=== PATIENT | female | born 1975 | race Caucasian/White ===

== ENCOUNTER → 2020-02-16 11:20 | Outpatient (BNVA) | payer SELFPAY | PROVIDERS: Family Provider Nurse Practitioner Family; PCP Nurse Practitioner Family; Visit Provider Registered Nurse | DX: E78.5 Hyperlipidemia, unspecified (principal); R73.9 Hyperglycemia, unspecified | CPT/HCPCS: 80053; 80061; 85025 ==

== ENCOUNTER → 2021-02-15 09:12 | Outpatient (BNVA) | payer SELFPAY | PROVIDERS: Family Provider Nurse Practitioner Family; PCP Nurse Practitioner Family; Referring Provider Registered Nurse; Visit Provider Orthopaedic Surgery | DX: M17.11 Unilateral primary osteoarthritis, right knee (principal) | CPT/HCPCS: 73560; 73565 ==

== ENCOUNTER → 2021-08-28 09:44 | Outpatient (BNVA) | payer SELFPAY | PROVIDERS: Family Provider Nurse Practitioner Family; PCP Registered Nurse; Visit Provider Registered Nurse | DX: E11.9 Type 2 diabetes mellitus without complications (principal); E78.2 Mixed hyperlipidemia | CPT/HCPCS: 80053; 81000; 83036 ==

== ENCOUNTER → 2021-11-22 16:59 | Outpatient (BNVA) | payer SELFPAY | PROVIDERS: Family Provider Nurse Practitioner Family; PCP Registered Nurse; Visit Provider Family Medicine | DX: M54.9 Dorsalgia, unspecified (principal); N20.0 Calculus of kidney | CPT/HCPCS: 81000 ==

== ENCOUNTER → 2021-12-06 00:01 | Outpatient (BNVA) | payer MEDICAID, SELFPAY | PROVIDERS: Family Provider Nurse Practitioner Family; PCP Registered Nurse; Visit Provider Registered Nurse | DX: M25.50 Pain in unspecified joint (principal); I10 Essential (primary) hypertension | CPT/HCPCS: 80053; 85025; 85651; 86038; 86140; 86431 ==

== ENCOUNTER → 2022-01-01 09:39 | Outpatient (BNVA) | payer MEDICAID, SELFPAY | PROVIDERS: Family Provider Nurse Practitioner Family; PCP Registered Nurse; Visit Provider Registered Nurse | DX: R31.9 Hematuria, unspecified (principal); R10.9 Unspecified abdominal pain | CPT/HCPCS: 81000; 87086 ==

== ENCOUNTER 2022-01-02 15:38 | Outpatient (CLI) | payer MEDICAID, SELFPAY ==
--- NOTE | 2022-01-02 15:30 | CT_ITS ---
WS: [email or web address] CT ABDOMEN AND PELVIS NONCONTRAST HISTORY: Right-sided flank pain for one month. TECHNIQUE: Imaging performed through the abdomen and pelvis. Coronal and sagittal reformats are submi tted. All CT scans at [facility] use at least one of these dose optimization techniques: auto mated exposure control; mA and/or kV adjustment per patient size (includes targeted exams where dose is matched to clinical indication); or iterative reconstruction. DLP: 1901.04 mGy.cm COMPARISON: 08/05/2019 Lower thorax: New lobulated partially visualized nodule in the LEFT lower lung measuring 2.4 x 1.6 cm . There is a small amount of adjacent inflammatory change within the lung. Heart size is normal. No h iatal hernia. Liver: Liver is moderately enlarged extending over length of 19 cm. No bile duct dilatation. Gallbladder: Prior cholecystectomy. Pancreas: Normal size and attenuation. Normal pancreatic duct. No pancreatitis or mass. Spleen: Normal. Adrenal glands: Normal. No mass. Right kidney: Normal size kidney with no mass or hydronephrosis. Left kidney: Normal size kidney with no mass or hydronephrosis. Aorta: Normal abdominal aorta, no aneurysm or atherosclerosis. No free fluid, intraperitoneal air or significant lymphadenopathy. GI tract: Normal appendix. No GI tract obstruction or diverticulosis. Abdominal wall: Negative. No hernia. Pelvis: Normal. Osseous structures: Unremarkable. CT/CT kidney stone [id number] IMPRESSION: 1. No renal obstruction or calcification. 2. No evidence for appendicitis. 3. Incompletely visualized LEFT lower lobe pulmonary nodule measures 2.4 x 1.6 cm. Differential includes pneumonia, inflammatory nodule or neoplasm. Recommen d short-term chest CT follow-up, 2-4 weeks after treatment for possible pneumon ia. 4. Prior cholecystectomy. 5. Mild hepatomegaly.
--- NOTE | 2022-01-02 16:12 | XR_ITS ---
WS: [email or web address] XR sacroiliac jts m 3V [id number] REASON FOR EXAM: R76.8 - Other specified abnormal immunological findings i... FINDINGS: There is no bridging or fusion of the sacroiliac joints. There are no marginal erosions. Joints are well defined with slightly sclerotic margins with small marginal osteophytes at the inferi or joint line. XR/XR sacroiliac jts m 3V [id number] IMPRESSION: Mild osteoarthritis of the sacroiliac joints. No findings of spondyloarthropathy.
--- NOTE | 2022-01-02 16:12 | XR_ITS ---
WS: [email or web address] XR hand RT 2V [id number] REASON FOR EXAM: R76.8 - Other specified abnormal immunological findings i... FINDINGS: Arthropathy characterized by mild joint space narrowing with mild subchondral sclerosis and small mar ginal osteophytes involving the DIP and PIP joints of the second through the fifth fingers. The arthr opathy predominates in the DIP joints. Similar arthropathy is seen in the joints of the thumb. Lucencies are seen in the proximal distal mos t phalanx and the distal most proximal phalanx adjacent to the joint space as previously noted on the left hand. XR/XR hand RT 2V [id number] IMPRESSION: Osteoarthritis of the right hand. Lucencies in the phalanges of the thumbs as above. While this may relate to the DIP joint arthropathy in near identical appearance and same location suggests it may be congenital.
--- NOTE | 2022-01-02 16:12 | XR_ITS ---
WS: [email or web address] XR hand LT 2V [id number] REASON FOR EXAM: R76.8 - Other specified abnormal immunological findings i... FINDINGS: Arthropathy characterized by moderate narrowing of the joint spaces with mild subchondral sclerosis a nd small marginal osteophytes involving the PIP and DIP joints of the second through the fifth finger s. Findings predominate in the DIP joints. Similar arthropathy involving the and joints of the thumb. In the proximal portion of the distal phalanx of there is a lucency substantiated on 2 views. On one view there also appears to be a lucency in the distal most proximal phalanx of the thumb. This is not substantiated on a second view. Most likely this is related to the DIP arthropathy. Similar findings are noted in the right thumb which also has DIP arthropathy. XR/XR hand LT 2V [id number] IMPRESSION: Osteoarthritis of the left hand. Focal areas of abnormality in the proximal and distal phalanx of the thumb as a dayne.
[2022-01-02 16:54] LABS: Erythrocyte Sedimentation Rate 8 mm/hr (0-15)
[2022-01-02 18:10] LABS: C Reactive Protein 3.2 mg/L (0.0-4.9); Creatine Phosphokinase 45 U/L (26-192)
[2022-01-02 20:35] LABS: Hepatitis B Core AB, Total Non-Reactive (Nonreactive); Hepatitis B Surface Antigen Non-Reactive (Nonreactive); Hepatitis C Virus Antibody Non-Reactive (Nonreactive)
[2022-01-08 11:53] LABS: COMPLEMENT, TOTAL (CH50) >60 U/mL (31-60)
[2022-01-08 12:13] LABS: COMPLEMENT COMPONENT C3C 140 mg/dL (83-193); COMPLEMENT COMPONENT C4C 37 mg/dL (15-57)
[2022-01-08 14:43] LABS: Cyclic Citrullinated Peptide <16 UNITS
[2022-01-09 11:53] LABS: CENTROMERE B ANTIBODY <1.0 NEG AI (<1.0 NEG); JO-1 ANTIBODY <1.0 NEG AI (<1.0 NEG); RNP ANTIBODY <1.0 NEG AI (<1.0 NEG); SCL-70 ANTIBODY <1.0 NEG AI (<1.0 NEG); SJOGREN'S ANTIBODY (SS-A) <1.0 NEG AI (<1.0 NEG); SM ANTIBODY <1.0 NEG AI (<1.0 NEG); SS-B <1.0 NEG AI (<1.0 NEG)
[2022-01-10 12:48] LABS: ANA SCREEN, IFA POSITIVE (NEGATIVE)
[2022-01-10 15:36] LABS: THYROID PEROXIDASE ANTIBODIES <1 IU/mL (<9)
[2022-01-13 15:08] LABS: DNA AB (DS) CRITHIDIA,IFA NEGATIVE (NEGATIVE)
== END 2022-01-02 15:39 | disposition home or self-care (01) ==
LOC: RAD 16:09
PROVIDERS: Internal Medicine; PCP Registered Nurse; Visit Provider Registered Nurse
DX: R76.8 Other specified abnormal immunological findings in serum (principal); M46.1 Sacroiliitis, not elsewhere classified; M19.042 Primary osteoarthritis, left hand; M19.041 Primary osteoarthritis, right hand; Z90.49 Acquired absence of other specified parts of digestive tract; R16.0 Hepatomegaly, not elsewhere classified
CPT/HCPCS: 36415; 72202; 73120; 74176; 82550; 85651; 86140; 86160; 86162; 86200; 86235; 86255; 86376; 86431; 86704; 86803; 87340

== ENCOUNTER 2022-01-16 15:13 | Outpatient (CLI) | payer MEDICAID, SELFPAY ==
--- NOTE | 2022-01-16 15:30 | CT_ITS ---
WS: [email or web address] CT CHEST WITHOUT INTRAVENOUS CONTRAST HISTORY: R91.1 - Solitary pulmonary nodule TECHNIQUE: Contiguous 5 mm axial imaging performed on the thorax. Coronal and sagittal reformats are submitted. All CT scans at [facility] use at least one of these dose optimization techniques: automated exposure control; mA and/or kV adjustment per patient size (includes targeted exams where dose is matched to clinical indication); or iterative reconstruction. CONTRAST: None DLP: 891.17 mGy.cm COMPARISON: CT 01/02/2022 Lungs and central airway: Lobulated pulmonary nodule LEFT lower lobe is reidentified. Nodule extends over length of 2.0 cm and transversely by 1.5 in anterior posterior by 2.2 cm. This nodule has very s lightly decreased in size since the prior study. This is the lobulated nodule with a small amount of adjacent inflammation. No additional nodules are identified. Pleura: Normal. No pleural effusion. Heart and pericardium: Normal size heart with no pericardial effusion. Mediastinum and myriam: No mediastinum or hilar adenopathy. Vessels: Pulmonary artery is equal to the aorta. No significant atherosclerotic changes. Chest wall and lower neck: No soft tissue masses. Upper abdomen: Prior cholecystectomy. Hepatic steatosis. No adrenal mass. Osseous structures: Mild curvature thoracic spine. No fracture. CT/CT chest wo con [id number] IMPRESSION: 1. Lobulated pulmonary nodule LEFT lower lobe measures 2.0 x 1.5 x 2.2 cm. Nod ule does appear very slightly decreased as compared to the prior study. Could b e a postinflammatory nodule but early neoplasm should still be considered. Cons ider follow-up with pulmonology. Recommend continued close follow-up by CT ches t evaluation. If no intervention is performed at this time chest CT in 3 months recommended. 2. No adenopathy identified on this unenhanced study. 3. Prior cholecystectomy.
== END 2022-01-16 15:14 | disposition home or self-care (01) ==
LOC: RAD 15:16
PROVIDERS: PCP Registered Nurse; Visit Provider Registered Nurse
DX: R91.1 Solitary pulmonary nodule (principal); Z90.49 Acquired absence of other specified parts of digestive tract
CPT/HCPCS: 71250

== ENCOUNTER 2022-02-01 12:50 | Outpatient (CLI) | payer MEDICAID, SELFPAY ==
[2022-02-01 13:28] LABS: Erythrocyte Sedimentation Rate 11 mm/hr (0-15)
[2022-02-01 13:55] LABS: C Reactive Protein 23.5 mg/L (0.0-4.9); Calcium 9.7 mg/dL (8.5-10.5)
[2022-02-01 14:01] LABS: Parathyroid Hormone 63.3 pg/mL (15-65)
[2022-02-02 12:37] LABS: Angiotensin Converting Enzyme 33 U/L (9-67)
[2022-02-02 16:08] LABS: ALPHA 1 GLOBULIN 0.3 g/dL (0.2-0.3); ALPHA 2 GLOBULIN 0.7 g/dL (0.5-0.9); BETA 1 GLOBULIN 0.5 g/dL (0.4-0.6); BETA 2 GLOBULIN 0.4 g/dL (0.2-0.5)
== END 2022-02-01 12:51 | disposition home or self-care (01) ==
LOC: LAB 12:53
PROVIDERS: PCP Registered Nurse; Visit Provider Internal Medicine
DX: R10.9 Unspecified abdominal pain (principal); R21 Rash and other nonspecific skin eruption; R91.1 Solitary pulmonary nodule; R93.7 Abnormal findings on diagnostic imaging of other parts of musculoskeletal system
CPT/HCPCS: 82164; 82310; 83970; 84155; 84165; 85651; 86140

== ENCOUNTER → 2022-07-11 14:15 | Outpatient (BNVA) | payer OTHER, BC, SELFPAY | PROVIDERS: PCP Registered Nurse; Visit Provider Internal Medicine Pulmonary Disease | DX: R91.1 Solitary pulmonary nodule (principal); J45.909 Unspecified asthma, uncomplicated; E66.9 Obesity, unspecified; G47.9 Sleep disorder, unspecified; R06.09 Other forms of dyspnea | CPT/HCPCS: 99204 ==

== ENCOUNTER 2022-07-12 11:30 | Outpatient (CLI) | payer BC, MEDICAID, SELFPAY ==
--- NOTE | 2022-07-12 12:00 | CT_ITS ---
WS: [email or web address] CT CHEST WITH INTRAVENOUS CONTRAST HISTORY: Follow-up pulmonary nodule. TECHNIQUE: Contiguous 5 mm axial imaging performed on the thorax. Coronal and sagittal reformats are submitted. All CT scans at [facility] use at least one of these dose optimization techniques: automated exposure control; mA and/or kV adjustment per patient size (includes targeted exams where dose is matched to clinical indication); or iterative reconstruction. CONTRAST: Omnipaque 350; 95 mL IV. DLP: 756.20 mGy.cm COMPARISON: 01/02/2022 and 01/16/2022 Lungs and central airway: Continued slow decrease in size of the LEFT lower lobe pulmonary nodule sin ce 01/02/2022. Nodule now measures 9 x 8 mm. There are a few adjacent smaller 2 to 3 mm nodules surroun ding the main lesion. These nodules were present on the prior study and also decreased in size. Less inflammatory change within the lung. No new nodule. Pleura: Normal. No pleural effusion. Heart and pericardium: Normal size heart with no pericardial effusion. Mediastinum and myriam: Indeterminate LEFT hilar lymph node measures 13 mm. This could been present on the prior study but not well visualized without IV contrast. No additional prominent lymph nodes. Vessels: Normal size aortic and pulmonary artery. No coronary artery calcifications. Chest wall and lower neck: No soft tissue masses. Upper abdomen: Hepatic steatosis. Prior cholecystectomy. Osseous structures: Mild thoracic spondylosis. No osteoblastic or osteolytic lesions. CT/CT chest w con* [id number] IMPRESSION: 1. Continued slow decrease in size of the LEFT lower lobe pulmonary nodule now measuring 9 x 8 mm as compared to 15 x 22 mm on the prior study. Recommend con tinued follow-up. Chest CT in 6 months. 2. Indeterminate LEFT hilar lymph node at 13 mm. Not visualized on the prior s tudy without IV contrast. 3. No new nodules.
[2022-07-12 12:16] LABS: Basophils % 0.5 %; Eosinophils # 0.1 10^3/uL (0.0-0.8); Eosinophils % 1.4 %; Hematocrit 40.7 % (37.0-47.0); Hemoglobin 13.5 g/dL (11.5-15.3); Lymphocytes # 1.3 10^3/uL (0.8-4.8); Lymphocytes % 21.8 %; Mean Corpuscular HGB Conc 33.2 g/dL (30.0-36.0); Mean Corpuscular Hemoglobin 26.8 pg (28.0-34.0); Mean Corpuscular Volume 80.9 fl (81-99); Mean Platelet Volume 9.9 fL (7.4-10.4); Monocytes # 0.4 10^3/uL (0.2-0.9); Monocytes % 6.7 %; Neutrophils # 4.05 10^3/uL (1.8-7.7); Neutrophils % 69.4 %; Nucleated Red Blood Cells % 0 %; Platelet Count 297 10^3/cmm (130-400); Red Blood Count 5.03 10^6/uL (4.1-5.3); Red Cell Distribution Width 14.3 % (12.1-15.1); White Blood Count 5.8 10^3/uL (4.0-10.0)
[2022-07-12] MEDS: iohexol 350 mg/mL 100 mL Btl IV (12:47)
[2022-07-12 13:05] LABS: Thyroid Stimulating Hormone 1.25 uIU/mL (0.27-4.20)
[2022-07-12 13:20] LABS: 25 Hydroxy Vitamin D > 100 ng/mL (30-100)
[2022-07-12 13:34] LABS: Free T4 Free Thyroxine 1.05 ng/dL (0.82-1.77)
[2022-07-13 17:03] LABS: Alternaria Alternata (M6) Ige <0.10 kU/L; Alternaria Class 0; Bermuda Class 0; Bermuda Grass (G2) Ige <0.10 kU/L; Cat Dander (E1) Ige <0.10 kU/L; Cat Dander Class 0; Common Ragweed (Short) (W1) Ig <0.10 kU/L; D. Farinae Class 0; Dermatophagoides Class 0; Dermatophagoides Farinae (D2) <0.10 kU/L; Dermatophagoides Pteronyssinus <0.10 kU/L; Dog Dander (E5) Ige 0.14 kU/L; Dog Dander Class 0/1; Elm (T8) Ige <0.10 kU/L; Elm Class 0; English Plantain (W9) Ige <0.10 kU/L; English Plantain Class 0; House Dust (Greer) (H1) Ige <0.10 kU/L; House Dust (Hollister- Stier) <0.10 kU/L; House Dust Class 0; Immunoglobulin E 11 kU/L (<OR=114); Immunoglobulin E 12 kU/L (<OR=114); Johnson Grass (G10) Ige <0.10 kU/L; Johnson Grass Cl 0; June Grass Class 0; June Grass(Kentucky Blue) (G8) <0.10 kU/L; Lamb'S Quarters (Goose Foot) <0.10 kU/L; Lamb'S Quarters Class 0; Maple (Box Elder) (T1) Ige <0.10 kU/L; Maple Class 0; Meadow Fescue (G4) Ige <0.10 kU/L; Meadow Fescue Class 0; Mucor Racemosus Class 0; Oak (T7) Ige <0.10 kU/L; Oak Class 0; Orchard Grass (Cocksfoot) (G3) <0.10 kU/L; Penicillium Class 0; Penicillium Notatum (M1) Ige <0.10 kU/L; Perennial Rye Grass (G5) Ige <0.10 kU/L; Perennial Rye Grass Class 0; Ragweeed Class 0; Rough Marsh Elder (W16) Ige <0.10 kU/L; Rough Marsh Elder Class 0; Sweet Vernal Class 0; Sweet Vernal Grass (G1) Ige <0.10 kU/L; Timothy Grass (G6) Ige <0.10 kU/L; Timothy Grass Class 0
[2022-07-17 19:47] LABS: Aspergillus Fumigatus, Igg Ab, 8.9 mg/L (<=102)
== END 2022-07-12 11:31 | disposition home or self-care (01) ==
LOC: RAD 11:30 → LAB 11:32 → RAD 12:40
PROVIDERS: PCP Registered Nurse; Visit Provider Internal Medicine Pulmonary Disease
DX: R91.1 Solitary pulmonary nodule (principal); R06.02 Shortness of breath; R06.09 Other forms of dyspnea
CPT/HCPCS: 71260; 82306; 82785; 84439; 84443; 85025; 86003

== ENCOUNTER → 2022-09-06 11:47 | Outpatient (BNVA) | payer BC, MEDICAID, SELFPAY | PROVIDERS: PCP Registered Nurse; Visit Provider Registered Nurse | DX: E11.9 Type 2 diabetes mellitus without complications (principal); E66.9 Obesity, unspecified | CPT/HCPCS: 83036 ==

== ENCOUNTER 2022-09-11 09:03 | Outpatient (CLI) | payer BC, MEDICAID, SELFPAY ==
--- NOTE | 2022-09-11 14:00 | PFTS_ITS ---
Date of Study:09/12/22 Date of Dictation: MECHANICS: Forced vital capacity (FVC) is normal. Forced expiratory volume in one second (FEV1) is normal. FEV1/FVC is normal. FLOW VOLUME LOOP: Normal. LUNG VOLUMES: Total lung capacity (TLC) is normal. Residual volume (RV) is normal. DIFFUSING CAPACITY FOR CARBON MONOXIDE: Normal. INTERPRETATION: The prebronchodilator spirometry is normal. Lung volumes are normal. Gas exchange (DLCO) is normal. MTDD
--- NOTE | 2022-09-11 14:33 | PFTS_ITS ---
Date of Study:09/11/22 Date of Dictation: MECHANICS: Forced vital capacity (FVC) is . Forced expiratory volume in one second (FEV1) is . FEV1/FVC is . FLOW VOLUME LOOP: . LUNG VOLUMES: Total lung capacity (TLC) is . Residual volume (RV) is . DIFFUSING CAPACITY FOR CARBON MONOXIDE: . INTERPRETATION: The pulmonary function tests are . mechanics and lung volumes. Gas exchange (DLCO) is . MTDD
== END 2022-09-11 09:04 | disposition home or self-care (01) ==
PROVIDERS: PCP Registered Nurse; Visit Provider Internal Medicine Pulmonary Disease
DX: R06.09 Other forms of dyspnea (principal)
CPT/HCPCS: 94010; 94726; 94729; 99204

== ENCOUNTER → 2022-12-13 08:16 | Outpatient (BNVA) | payer OTHER, BC, MEDICAID, SELFPAY | PROVIDERS: PCP Registered Nurse; Visit Provider Registered Nurse | DX: E11.9 Type 2 diabetes mellitus without complications (principal); E78.5 Hyperlipidemia, unspecified; R76.8 Other specified abnormal immunological findings in serum | CPT/HCPCS: 80053; 82306; 83036; 86140 ==

== ENCOUNTER 2022-12-18 14:30 | Outpatient (CLI) | payer BC, MEDICAID, SELFPAY | END 2022-12-18 14:31 | disposition home or self-care (01) | LOC: SLEEP 12-19 10:43 | PROVIDERS: PCP Registered Nurse; Visit Provider Internal Medicine Pulmonary Disease | DX: G47.9 Sleep disorder, unspecified (principal); G47.19 Other hypersomnia; E66.9 Obesity, unspecified | CPT/HCPCS: G0399 ==

== ENCOUNTER → 2022-12-24 08:15 | Outpatient (BNVA) | payer OTHER, BC, MEDICAID, SELFPAY | PROVIDERS: PCP Registered Nurse; Visit Provider Registered Nurse | DX: E11.9 Type 2 diabetes mellitus without complications (principal) | CPT/HCPCS: 81003; 82043 ==

== ENCOUNTER → 2023-01-07 08:14 | Outpatient (BNVA) | payer OTHER, BC, MEDICAID, SELFPAY | PROVIDERS: PCP Registered Nurse; Visit Provider Registered Nurse | DX: Z01.419 Encounter for gynecological examination (general) (routine) without abnormal findings (principal) | CPT/HCPCS: 87624 ==

== ENCOUNTER 2023-01-15 06:29 | Outpatient (CLI) | payer OTHER, BC, MEDICAID, SELFPAY ==
--- NOTE | 2023-01-15 | CT_ITS ---
WS: [email or web address] CT CHEST WITHOUT INTRAVENOUS CONTRAST HISTORY: SOLITARY PULMONARY NODULE TECHNIQUE: Contiguous 5 mm axial imaging performed on the thorax. Coronal and sagittal reformats are submitted. All CT scans at [facility] use at least one of these dose optimization techniques: automated exposure control; mA and/or kV adjustment per patient size (includes targeted exams where dose is matched to clinical indication); or iterative reconstruction. CONTRAST: None DLP: 567.02 mGy.cm COMPARISON: 07/12/2022, 01/16/2022, 01/02/2022 Lungs and central airway: Lobulated soft tissue mass in the LEFT lower lobe has slightly increased in size now measuring 12 x 8 mm. There are several adjacent small satellite nodules which are better vi sualized today. The small satellite nodules were also present on 01/16/2022. No additional nodules or pneumonia. No mass. Pleura: Normal. No pleural effusion. Heart and pericardium: Heart is normal size. Suspect small intra-atrial lipoma. Mild pericardial thic kening. Mediastinum and myriam: No mediastinum or hilar adenopathy. Vessels: Normal size aortic and pulmonary artery. No coronary artery calcifications. Chest wall and lower neck: No soft tissue masses. Upper abdomen: Prior cholecystectomy. Visualized liver is negative. No adenopathy or free fluid. Osseous structures: No destructive process. CT/CT chest wo con [id number] IMPRESSION: 1. Very slight increase in size of lobulated LEFT lower lobe pulmonary nodule now measuring 12 x 8 mm. Small adjacent satellite nodules are reidentified. The se were noted on the prior CT of 01/16/2022. No new nodule. Recommend continued surveillance. Original measurement was 2.4 x 1.6 cm as seen on the CT of 01/02/20 22. 2. No mass or pneumonia. 3. Prior cholecystectomy.
== END 2023-01-15 06:30 | disposition home or self-care (01) ==
LOC: RAD 06:30
PROVIDERS: PCP Registered Nurse; Visit Provider Internal Medicine Pulmonary Disease
DX: R91.1 Solitary pulmonary nodule (principal); Z90.49 Acquired absence of other specified parts of digestive tract
CPT/HCPCS: 71250

== ENCOUNTER 2023-01-22 08:20 | Outpatient (CLI) | payer BC, MEDICAID, SELFPAY ==
--- NOTE | 2023-01-22 08:33 | MM_ITS ---
WS: [email or web address] BILATERAL SCREENING DIGITAL TOMOSYNTHESIS MAMMOGRAM WITH CAD HISTORY: Screening exam. COMPARISON: None available. Bilateral CC and MLO views with tomosynthesis and synthetic mammography submitted. Computer aided det ection analyzed. Breast composition: The breasts are heterogeneously dense, which may obscure small masses. Focal area of increased asymmetry and distortion in the anterior LEFT breast just posterior to the nipple needs further evaluation. May be superimposed fibroglandular tissue. No nipple retraction. MM/[place] [id number] IMPRESSION: BI-RADS: 0-Incomplete: Need additional imaging evaluation FOLLOW UP: Need Additional Imaging LEFT breast: Spot compression views (CC and MLO). True ML. Ultrasound to follow if abnormality persists.
== END 2023-01-22 08:21 | disposition home or self-care (01) ==
LOC: RAD 08:20
PROVIDERS: PCP Registered Nurse; Visit Provider Registered Nurse
DX: Z12.31 Encounter for screening mammogram for malignant neoplasm of breast (principal)
CPT/HCPCS: 77063; 77067; 87624

== ENCOUNTER 2023-01-25 13:37 | Outpatient (CLI) | payer OTHER, BC, MEDICAID, SELFPAY ==
--- NOTE | 2023-01-25 13:43 | MM_ITS ---
WS: [email or web address] ADDITIONAL VIEWS LEFT MAMMOGRAM with tomosynthesis. LEFT BREAST ULTRASOUND HISTORY: ABNORMAL MAMMO COMPARISON: 01/22/2023 LEFT MAMMOGRAM: Spot compression views and true ML with tomosynthesis and sympathetic mammography. There is dense fibroglandular tissue in the anterior breast. Previously described abnormality becomes less apparent and less masslike. No residual distortion. Ultrasound will be performed to ensure no u nderlying abnormality. LEFT BREAST ULTRASOUND 2-D and color Doppler imaging submitted. Ultrasound is directed to the anterior LEFT breast. No abnormality is identified. There are a few michelle y small ducts. No mass or distortion. No soft tissue shadowing. MM/[place] [id number] IMPRESSION: BI-RADS: 2-Benign FOLLOW UP: 1 Year Follow-up
--- NOTE | 2023-01-25 14:34 | US_ITS ---
WS: [email or web address] RENAL ULTRASOUND HISTORY: ABD pain, hematuria, RIGHT FLANK PAIN COMPARISON: 08/16/2010. TECHNIQUE: 2-D and color Doppler imaging of the kidney submitted. Right kidney: 12.7 cm x 6.3 cm x 5.4 cm. Normal echogenicity with no hydronephrosis or mass. Normal cortex, 1.7 cm. Left kidney: 11.3 cm x 7.0 cm x 5.9 cm. Normal echogenicity with no hydronephrosis or mass. Normal cortex, 1.9 cm. Aorta: Normal. Urinary Bladder: Normal distention. US/US renal BI* [id number] IMPRESSION: Normal renal ultrasound.
== END 2023-01-25 13:38 | disposition home or self-care (01) ==
PROVIDERS: PCP Registered Nurse; Visit Provider Registered Nurse
DX: R92.8 Other abnormal and inconclusive findings on diagnostic imaging of breast (principal)
CPT/HCPCS: 76642; 76770; 77061; 87880; G0279

== ENCOUNTER → 2023-02-20 10:55 | Outpatient (BNVA) | payer OTHER, BC, MEDICAID, SELFPAY | PROVIDERS: PCP Registered Nurse; Visit Provider Orthopaedic Surgery | DX: M23.91 Unspecified internal derangement of right knee (principal); M17.11 Unilateral primary osteoarthritis, right knee | CPT/HCPCS: 73560; 73565 ==

== ENCOUNTER → 2023-02-28 08:36 | Outpatient (BNVA) | payer OTHER, BC, SELFPAY | PROVIDERS: PCP Registered Nurse; Visit Provider Registered Nurse | DX: N39.0 Urinary tract infection, site not specified (principal) | CPT/HCPCS: 81000; 87086 ==

== ENCOUNTER 2023-03-21 07:56 | Outpatient (CLI) | payer OTHER, BC, SELFPAY ==
--- NOTE | 2023-03-21 08:00 | MR_ITS ---
WS: [email or web address] MRI RIGHT KNEE NONCONTRAST TECHNIQUE: Axial PD, coronal PD fat sat, coronal PD, sagittal PD, and sagittal PD fat-sat images obta ined. CLINICAL INFORMATION: pain COMPARISON: MRI 08/26/20 FINDINGS: Distal quadriceps and patella tendons are intact. Hypertrophic patella. Normal ACL and PCL. Normal me dial and lateral meniscus. No acute appearing meniscal tears. Mild chronic thinning of the medial men iscus. Advanced chondromalacia patella. Small amount of subchondral edema in the patella. Medial and lateral patellar retinaculum appear intact. Small amount of prepatellar and infrapatellar soft tissue edema. Lobulated ganglion cyst along the medial femoral condyle was present on the prior examination. This is slightly more prominent today measuring 13 x 14 mm. Tiny dissecting popliteal cyst unchanged. Norm al medial and lateral collateral ligaments. MR/MR knee RT wo con* [id number] IMPRESSION: 1. Normal ACL and PCL. 2. Advanced chondromalacia patella with subchondral edema similar to previous. This is advanced for patient this age. 3. Small lobulated extra-articular ganglion cyst slightly more prominent abhay red to previous measuring 14 x 13 mm. 4. Normal medial and lateral collateral ligaments. 5. No acute appearing meniscal tears. 6. Mild chondromalacia medial and lateral joint compartments. Outbridge grading: grade IV: full-thickness cartilage loss with underlying bone reactive changes
== END 2023-03-21 07:57 | disposition home or self-care (01) ==
LOC: RAD 08:02
PROVIDERS: PCP Registered Nurse; Visit Provider Orthopaedic Surgery
DX: M17.11 Unilateral primary osteoarthritis, right knee (principal); M24.10 Other articular cartilage disorders, unspecified site; M22.41 Chondromalacia patellae, right knee
CPT/HCPCS: 73721

== ENCOUNTER → 2023-09-26 09:08 | Outpatient (BNVA) | payer OTHER, SELFPAY | PROVIDERS: PCP Registered Nurse; Visit Provider Registered Nurse | DX: R10.9 Unspecified abdominal pain (principal); N39.0 Urinary tract infection, site not specified; E11.9 Type 2 diabetes mellitus without complications | CPT/HCPCS: 80053; 80061; 81000; 83036; 85025; 87086 ==

== ENCOUNTER → 2024-04-29 07:55 | Outpatient (BNVA) | payer BC, MEDICAID, SELFPAY | PROVIDERS: PCP Nurse Practitioner Family; Visit Provider Obstetrics & Gynecology | DX: N92.6 Irregular menstruation, unspecified (principal); N93.9 Abnormal uterine and vaginal bleeding, unspecified | CPT/HCPCS: 76830 ==

== ENCOUNTER 2024-05-28 07:37 | Day surgery (SDC) | payer BC, MEDICAID, SELFPAY ==
[2024-05-28] VITALS (9 sets, daily range): BP systolic 103–150; BP diastolic 59–93; PULSE 57–71; RESP 14–95; TEMP 36.3–36.5; O2SAT 92–99; BMI 39.5
--- NOTE | 2024-05-28 02:12 | W.PM.OPSFHP ---
Same Day Surgery H&P Indication for Procedure/HPI DATE OF PROCEDURE: May 28, 2024 CHIEF COMPLAINT/INDICATIONFOR SURGICAL PROCEDURE: abnormal uterine bleeding PREOP DIAGNOSIS: abnormal uterine bleeding PLANNED PROCEDURE: Operation Date: 05/28/24 09:30 Proposed Procedures p Hysteroscopy Hysteroscopy w/ Endometrial Sampling 29465, N93.9(Not Applicable) - Ken Sotelo MD s Poylpectomy(Not Applicable) - Ken Sotelo MD 48 y.o. with irregular heavy bleeding Medications/Allergies* Allergies/Adverse Reactions Allergy/AdvReac Type Severity Reaction Status Date / Time promethazine [From Phenergan] Allergy Severe seizure Verified 05/05/24 07:59 amoxicillin Allergy Mild rash Verified 05/05/24 07:59 Pertinent History/Comorbid Conditions* Family History (Updated 12/27/21 @ 09:21 by Arely Davalos LPN) Diabetes Family/Other Mother Dementia Mother Hyperlipidemia Mother Heart attack Father Lung disease Mother Cancer Family/Other Hypertension Mother Denies family history of Rheumatoid arthritis Lupus Chronic kidney disease (CKD) Bleeding disorder Stroke Pertinent Exam Findings alert, oriented x 3, clear to auscultation bilaterally and regular rate & rhythm Pertinent Data Pap 2022 normal, as per patient Pelvic sono 04-29-24 uterus 10 x 5.6 x 7.5 cm 3.6 cm intramural fibroid Endometrium 1.1 cm heterogeneous Normal ovaries Recommendations Surgery/Procedure today Coding Level of Care Code Acute Code for Chg Fwd Time Spent (min) 30
[2024-05-28] MEDS: sodium chloride 0.9% 1,000 ML 30 ML IV (08:22)
--- NOTE | 2024-05-28 08:55 | ANES.PREANE2 ---
Pre-Anesthetic Assessment Height/Weight: Height 1.68 m Weight 111.13 kg Temp Pulse Resp BP Pulse Ox O2 Del Method 97.7 F 66 17 150/93 97 Room Air 05/28/24 08:01 05/28/24 08:01 05/28/24 08:01 05/28/24 08:01 05/28/24 08:01 05/28/24 08:01 Preop Diagnosis: abnormal uterine bleeding Operation Date: 05/28/24 09:30 Proposed Procedures p Hysteroscopy Hysteroscopy w/ Endometrial Sampling 04592, N93.9(Not Applicable) - Ken Sotelo MD s Poylpectomy(Not Applicable) - Ken Sotelo MD Familial anesthetic complications: None Was Beta Alexandra taken within 24 hours: N/A Was Clonidine taken within 24 hours: N/A Last intake: Intake Last Liquid Date 05/27/24 Last Liquid Time 19:30 Last Solid Date 05/27/24 Last Solid Time 19:30 Social No alcohol and No tobacco Exam alert, oriented x 3, clear to auscultation bilaterally and regular rate & rhythm Airway Mallampati: Class II Dentition: false Pulmonary Asthma Metabolic Diabetes Mellitus Anesthetic Plan ASA status: 3 Anesthesia: General Risk of > 500 ml blood loss (7ml/kg in children): No Medications/Allergies Home Medications Medication Instructions Recorded Confirmed Last Taken Type albuterol sulfate 90 mcg/actuation 2 inh inhalation QID PRN shortness 07/11/22 05/28/24 3 Months Ago Rx aerosol inhaler (Ventolin HFA) of breath or wheezing #8.5 grams ~02/26/24 blood sugar diagnostic (Blood #50 ea 09/06/22 05/05/24 Unknown Rx Glucose Test strips) blood-glucose meter #1 ea 09/06/22 05/05/24 Unknown Rx lancing device (Auto-Lancet Mini) #100 ea 09/06/22 05/05/24 Unknown Rx medroxyprogesterone 150 mg/mL 150 mg IM .[id number] #1 mL 05/04/24 05/28/24 Unknown Rx intramuscular suspension (Depo-Provera) nystatin-triamcinolone 100,000 1 applic topical BID #60 grams 05/04/24 05/28/24 05/27/24 Rx unit/g-0.1 % topical cream clobetasol 0.05 % topical cream 1 applic topical BID 2 weeks #45 05/05/24 05/28/24 05/27/24 Rx grams Allergies Allergy/AdvReac Type Severity Reaction Status Date / Time promethazine [From Phenergan] Allergy Severe seizure Verified 05/28/24 08:00 amoxicillin Allergy Mild rash Verified 05/28/24 08:00 Current Medications Generic Name Dose Route Start Last Admin Trade Name Freq PRN Reason Stop Dose Admin Sodium Chloride 1,000 mls @ 30 mls/hr 05/28/24 08:00 05/28/24 08:22 Sodium Chloride 0.9% IV 05/29/24 07:59 30 mls/hr .Q24H CORAL Administration PFSH Anesthesia Family History Family/Other Cancer Diabetes Mother Dementia Diabetes Hyperlipidemia Hypertension Lung disease Father Heart attack Denies family history of Rheumatoid arthritis Lupus Chronic kidney disease (CKD) Bleeding disorder Stroke Data Anesthesia Cardiac Studies: No Data to Display
--- NOTE | 2024-05-28 09:16 | W.PM.OPSUD ---
Surgery/Procedure H&P Update DATE OF PROCEDURE: May 28, 2024 DATE H&P PERFORMED: 05/28/24 H&P UPDATE INFORMATION: I have reviewed H&P completed within last 30 days, I have examined patient prior to procedure and No changes to prior documentation PREOP DIAGNOSIS: abnormal uterine bleeding PLANNED PROCEDURE: Operation Date: 05/28/24 09:30 Proposed Procedures p Hysteroscopy Hysteroscopy w/ Endometrial Sampling 41725, N93.9(Not Applicable) - Ken Sotelo MD s Poylpectomy(Not Applicable) - Ken Sotelo MD
[2024-05-28 10:09] LABS: Glucose Point of Care 130 mg/dL (70-110)
[2024-05-28 10:11] LABS: OR HCG Qualitative Urine Negative (Negative)
--- NOTE | 2024-05-28 11:05 | PM.OP ---
Operative Report Date of procedure: May 28, 2024 Pre-op diagnosis: abnormal uterine bleeding Post-op diagnosis: same Post-op findings: normal endometrial cavity No polyps / fibroids Minimal endometrial tissue Procedure done: hysteroscopy Curettage of uterus Implants: none Specimens removed/disposition: endometrial tissue Surgeon: Ken Sotelo MD Anesthesia: MAC Estimated blood loss (mL): 0 Complications: none Findings: normal endometrial cavity No polyps / fibroids Minimal endometrial tissue Condition: stable Disposition: PACU Brief History: 48 y.o. periods irregular sometimes none for 6 months then heavy bleeding with lots of clots and spotting Procedure: Informed consent signed. Patient was taken to the operating room. Anesthesia was induced. Patient was placed in dorsolithotomy position, prepped and draped for hysteroscopy. A bivalve speculum was placed in the vagina. The anterior lip of the cervix was grasped with a sharp-toothed tenaculum. The cervix was serially dilated with Hegar dilators. . A hysteroscope was placed into the endometrial cavity. The endometrial cavity was seen to be normal. There were no polyps or fibroids. There was a minimal amount of endometrial tissue. The hysteroscope was then removed. Endometrial curettage was done with a sharp curette. Endometrial tissue was sent to pathology. The sharp-toothed tenaculum was removed. There was no bleeding from the endometrial cavity or cervix. The patient was then placed supine and awakened and taken to the PACU. Postop condition: stable EBL: none Sponge and instruments counts were normal x 2 Complications: none
--- NOTE | 2024-05-28 11:40 | ANE.PACU2 ---
Inpatient post-anesthesia follow up: Airway intact: Yes Vital signs: Temperature 97.4 F Pulse Rate 57 Respiratory Rate 18 Blood Pressure 137/77 Pulse Oximetry 99 Oxygen Delivery Me thod Room Air Oxygen Flow Rate Fraction of Inspir ed Oxygen Hydration adequate: Yes Nausea and vomiting: No Pain level: 1 Mental status: Baseline
== END 2024-05-28 11:40 | disposition home or self-care (01) ==
PROVIDERS: Anesthesiology; PCP Nurse Practitioner Family; Visit Provider Obstetrics & Gynecology
PROC: 0UJD8ZZ Inspection of Uterus and Cervix, Via Natural or Artificial Opening Endoscopic (ICD-10-PCS; CPT 58555; principal; 2024-05-28 09:20)
PROC: (CPT 58558; 2024-05-28 09:20)
DX: N93.9 Abnormal uterine and vaginal bleeding, unspecified (principal); E11.9 Type 2 diabetes mellitus without complications
CPT/HCPCS: 58558; 36416; 81025; 82962; 88305; J0330; J1100; J2250; J2405; J2704; J3010; J7030

== ENCOUNTER 2024-06-23 17:27 | Emergency (ER) | payer MEDICAID, SELFPAY ==
[2024-06-23] VITALS (7 sets, daily range): BP systolic 117–161; BP diastolic 63–97; PULSE 68–91; RESP 16–18; O2SAT 95–100
[2024-06-23 17:59] LABS: Basophils % 0.5 %; Eosinophils # 0.1 10^3/uL (0.0-0.8); Eosinophils % 1.1 %; Hematocrit 39.7 % (36-47); Lymphocytes # 1.7 10^3/uL (0.8-4.8); Lymphocytes % 27.2 %; Mean Corpuscular HGB Conc 34.3 g/dL (30-55); Mean Corpuscular Hemoglobin 27.3 pg (27-33); Mean Corpuscular Volume 79.7 fl (85-98); Mean Platelet Volume 9.5 fL (7.4-10.4); Monocytes # 0.6 10^3/uL (0.2-0.9); Monocytes % 9.9 %; Neutrophils # 3.75 10^3/uL (1.8-7.7); Nucleated Red Blood Cells % 0 %; Platelet Count 278 10^3/cmm (157-399); Red Blood Count 4.98 10^6/uL (3.85-5.65); White Blood Count 6.15 10^3/uL (3.29-11.43)
[2024-06-23 18:28] LABS: Alanine Aminotransferase 43 U/L (0-33); Albumin Level 4.6 g/dL (3.5-5.2); Alkaline Phosphatase 84 U/L (35-105); Aspartate Amino Transferase 23 U/L (0-32); Blood Urea Nitrogen 11 mg/dL (6-20); Calcium 9.5 mg/dL (8.5-10.5); Carbon Dioxide 24 mmol/L (22-29); Chloride 103 mmol/L (98-107); Creatinine Clr Calc Pharmacy 121.4346; Globulin 3.1 g/dL (1.3-4.6); Glomerular Filtration Rate 88.9 mL/min (90-130); Glucose 144 mg/dL (65-115); Lipase 18 U/L (13-60); Osmolality Calculated 292 mOsm/kg (285-295); Sodium 140 mmol/L (136-145); Total Bilirubin 0.6 mg/dL (0.15-1.2); Total Protein 7.7 g/dL (6.6-8.7)
[2024-06-23 18:31] LABS: HCG, Serum Qual Negative (Negative)
--- NOTE | 2024-06-23 19:07 | CTR_ITS ---
PROCEDURE INFORMATION: Exam: CT Abdomen And Pelvis With Contrast Exam date and time: 06/23/2024 8:21 PM Age: 48 years old Clinical indication: Abdominal pain; Localized; Right lower quadrant (rlq); Prior surgery; Surgery date: 6+ months; Surgery type: Gb/ bx to uterus; Additional info: Rlq pain TECHNIQUE: Imaging protocol: Computed tomography of the abdomen and pelvis with contrast. Radiation optimization: All CT scans at this facility use at least one of these dose optimization techniques: automated exposure control; mA and/or kV adjustment per patient size (includes targeted exams where dose is matched to clinical indication); or iterative reconstruction. Contrast material: OMNI 350; Contrast volume: 100 ml; Contrast route: INTRAVENOUS (IV); COMPARISON: CT kidney stone [id number] 01/02/2022 4:33 PM RADIATION DOSE METRICS: Total DLP (mGy-cm): 1079.06 FINDINGS: Lungs: There is a 0.8 cm pulmonary nodule within the left lower lobe, previously measuring up to 2.4 cm on January 02, 2022. Findings likely represent a benign etiology. Liver: Hypoattenuating hepatic parenchyma likely representing steatosis. Gallbladder and biliary ducts: Status post cholecystectomy. Pancreas: Normal. No ductal dilation. Spleen: Normal. No splenomegaly. Adrenal glands: Normal. No mass. Kidneys and ureters: Normal. No hydronephrosis. Stomach and bowel: Unremarkable. No obstruction. No mucosal thickening. Appendix: No evidence of appendicitis. Intraperitoneal space: Unremarkable. No free air. No significant fluid collection. Vasculature: Unremarkable. No abdominal aortic aneurysm. Lymph nodes: Unremarkable. No enlarged lymph nodes. Urinary bladder: Unremarkable as visualized. Reproductive: Unremarkable as visualized. Bones/joints: Unremarkable. No acute fracture. Soft tissues: Unremarkable. CT/CT abdomen pelvis w con* [id number] IMPRESSION: 1. No acute findings within the abdomen or pelvis. 2. Hepatic steatosis.
--- NOTE | 2024-06-23 19:13 | ED_ITS ---
HPI - Abdominal Pain 2 General: Chief Complaint: Abdominal Pain Stated Complaint: RT abd pain Time Seen by Provider: 06/23/24 18:10 Source: patient Mode of arrival: ambulatory Limitations: no limitations History of Present Illness: Patient is a 48-year-old female presenting with right lower abdominal pain beginning little over a day ago. Patient states she awoke with the pain, thinking that she overdid it from moving furniture the day before. However it has continued to get worse and she is now noting nausea. She states the pain is worse with any movement, coughing, laughing, and palpation. She still has her appendix, history of cholecystectomy. She does note that recently she had a biopsy of her uterus done for fibroid, and this came back normal. She denies any urinary symptoms, history of kidney stones, chest pain, shortness of breath, vomiting or diarrhea, or any other symptoms at this time. She does note that she took a Zofran and this did seem to help, however she has been having a decreased appetite. No other medications have been taken for her pain and no other concerning historical elements reported this time. MD elicited complaint: abdominal pain Onset (ago): day(s) Pain Consistency: constant Location: RLQ Severity: moderate Quality: sharp Radiation: none Exacerbating factors: movement and other (Palpation, laughing, coughing) Relieving factors: rest Associated Symptoms: Reports nausea; Denies bloating, change in stool character, chills, constipation, diarrhea, dysuria, fever(s), hematochezia and vomiting Treatments prior to arrival: other (Zofran) Review of Systems 2 General: Reports: 10 or more systems reviewed and unremarkable except in HPI and below Const: Reports: change in appetite; Denies: fever(s), chills, change in weight or diaphoresis ENMT: Denies: throat pain or hoarseness Card: Denies: chest pain, palpitations or lightheadedness Resp: Denies: dyspnea, productive cough or wheezing GI: Reports: abdominal pain and nausea; Denies: vomiting, diarrhea, constipation, bloating, change in stool character or hematochezia : Denies: flank pain, difficulty voiding, dysuria, urinary frequency or urinary urgency Musc: Denies: neck pain or back pain Skin/Breast: Denies: rash or new lesions Neuro: Denies: headache(s) or dizziness [facility] ED 2 PFSH: Family History Family/Other Cancer Diabetes Mother Dementia Diabetes Hyperlipidemia Hypertension Lung disease Father Heart attack Denies family history of Rheumatoid arthritis Lupus Chronic kidney disease (CKD) Bleeding disorder Stroke Social History Smoking and tobacco/nicotine status: never used tobacco/nicotine Physical Exam 2 Const: COMMON NORMALS: no acute distress, patient oriented x3, no limitations, healthy appearing, alert and well nourished GENERAL APPEARANCE: cooperative and comfortable NUTRITIONAL APPEARANCE: obese ORIENTATION/CONSCIOUSNESS: Y es awake HENMT: COMMON NORMALS: normocephalic, atraumatic, hearing grossly normal bilaterally, external ears normal, Normal external nose present, Normal nasal mucous membranes and turbinates present and moist oral mucous membranes HEAD & SCALP: normocephalic and atraumatic NOSE: Normal external nose present and Normal nasal mucous membranes and turbinates present EXTERNAL EAR: Yes external ears normal Eye: COMMON NORMALS: Equal, round and reactive pupils present, EOMs intact bilaterally, conjunctivae normal and normal visual marshall by confrontation C ONJUNCTIVA: Yes conjunctivae normal PUPIL: Yes Equal, round and reactive pupils present Neck/C-Spine: COMMON NORMALS: full ROM, supple, no meningeal signs and no JVD Resp: COMMON NORMALS: normal respiratory effort, No retractions, No use of accessory muscles and clear to auscultation bilaterally AUSCULTATION: clear to auscultation bilaterally, no crackles, no rales, no rhonchi and no wheezes Cardio: COMMON NORMALS: no JVD, regular rate, regular rhythm, S1 normal heart sound present, S2 normal heart sound present, No gallops present (Cardio), No clicks present (Cardio), No murmurs present (Cardio), No rub (Cardio) and Peripheral pulses 2+ throughout RATE: regular rate RHYTHM: regular rhythm HEART SOUNDS: S1 normal heart sound present and S2 normal heart sound present PERIPHERAL PULSES: Peripheral pulses 2+ throughout GI: COMMON NORMALS: Normal to inspection, nondistended, normoactive bowel sounds present, Soft to palpation, No hepatosplenomegaly present and no masses INSPECTION: Yes central obesity AUSCULTATION: Yes normoactive bowel sounds PALPATION: Yes Soft to palpation, No Guarding due to palpation present (GI), No Rigid due to palpation and Yes No hepatosplenomegaly present RECTAL EXAM: d eferred OTHER: The tenderness to palpation seems to be more suprapubic, slightly right of midline. Negative Bellmore's point tenderness and negative Rovsing's. : COMMON NORMALS: Yes no CVA tenderness BLADDER/KIDNEY EXAM: Yes no CVA tenderness Back/Pelvis: COMMON NORMALS: no CVA tenderness Extremity: COMMON NORMALS: normal to inspection and full ROM Neuro: COMMON NORMALS: patient oriented x3, moves all extremities, no focal motor deficits and no sensory deficits noted SENSORIUM/ORIENTATION: Yes alert MENINGEAL SIGNS: Yes no meningeal signs Psych: COMMON NORMALS: mental status grossly normal, cooperative and speech normal SPEECH: Yes normal speech Skin: COMMON NORMALS: no rashes or lesions noted GENERAL SKIN EXAM: no rashes or lesions noted Course 2 Vital Signs: Vital signs: Vital Signs Pulse Rate 75 06/23/24 20:30 Respiratory Rate 16 06/23/24 20:00 Blood Pressure 161/77 06/23/24 20:30 Pulse Oximetry 98 06/23/24 20:30 Oxygen Delivery Me thod Room Air 06/23/24 20:30 MDM - Abdominal Pain Medical Decision Making Patient presented with right lower quadrant abdominal pain for the past day or so. This did occur after strenuous lifting the day before, however she has developed some nausea and thinks it may not be musculoskeletal. Vitals on arrival normal she is noted to be afebrile. No pertinent past medical history to report other than cholecystectomy. She does still have her appendix. Her lab work was all negative. Scan of abdomen pelvis not demonstrate any acute findings. Her urine did show signs of a potential urinary tract infection, and on exam her reproducible tenderness to palpation did seem to be more midline over the suprapubic region, and I believe that this could likely be due to a cystitis. She will be treated with cefdinir and return precautions given. Lab Data 06/23/24 17:47 06/23/24 17:47 Labs/Radiology: Radiology Impressions Abdomen/Pelvis CT 06/23/24 19:07 IMPRESSION: 1. No acute findings within the abdomen or pelvis. 2. Hepatic steatosis. Laboratory Results WBC 6.15 10^3/uL (3.29-11.43) 06/23/24 17:47 RBC 4.98 10^6/uL (3.85-5.65) 06/23/24 17:47 Hgb 13.60 g/dL (11.27-16.99) 06/23/24 17:47 Hct 39.7 % (36-47) 06/23/24 17:47 MCV 79.7 fl (85-98) L 06/23/24 17:47 MCH 27.3 pg (27-33) 06/23/24 17:47 MCHC 34.3 g/dL (30-55) 06/23/24 17:47 RDW 14.0 % (12.1-15.1) 06/23/24 17:47 Plt Count 278 10^3/cmm (157-399) 06/23/24 17:47 MPV 9.5 fL (7.4-10.4) 06/23/24 17:47 Neut % (Auto) 61.0 % 06/23/24 17:47 Lymph % (Auto) 27.2 % 06/23/24 17:47 [place] % (Auto) 9.9 % 06/23/24 17:47 Eos % (Auto) 1.1 % 06/23/24 17:47 Baso % (Auto) 0.5 % 06/23/24 17:47 Neut # (Auto) 3.75 10^3/uL (1.8-7.7) 06/23/24 17:47 Lymph # (Auto) 1.7 10^3/uL (0.8-4.8) 06/23/24 17:47 [place] # (Auto) 0.6 10^3/uL (0.2-0.9) 06/23/24 17:47 Eos # (Auto) 0.1 10^3/uL (0.0-0.8) 06/23/24 17:47 Baso # (Auto) 0.0 10^3/uL (0.0-0.1) 06/23/24 17:47 Nucleated RBC % (auto) 0 % 06/23/24 17:47 Nucleated RBCs # 0.0 /100WBC 06/23/24 17:47 Sodium 140 mmol/L (136-145) 06/23/24 17:47 Potassium 4.0 mmol/L (3.5-5.1) 06/23/24 17:47 Chloride 103 mmol/L (98-107) 06/23/24 17:47 Carbon Dioxide 24 mmol/L (22-29) 06/23/24 17:47 Anion Gap 17.0 (5-19) 06/23/24 17:47 BUN 11 mg/dL (6-20) 06/23/24 17:47 Creatinine 0.7 mg/dL (0.5-0.9) 06/23/24 17:47 GFR Calculation 88.9 mL/min (90-130) L 06/23/24 17:47 Glucose 144 mg/dL (65-115) H 06/23/24 17:47 Calculated Osmolality 292 mOsm/kg (285-295) 06/23/24 17:47 Calcium 9.5 mg/dL (8.5-10.5) 06/23/24 17:47 Total Bilirubin 0.6 mg/dL (0.15-1.2) 06/23/24 17:47 AST 23 U/L (0-32) 06/23/24 17:47 ALT 43 U/L (0-33) H 06/23/24 17:47 Alkaline Phosphatase 84 U/L (35-105) 06/23/24 17:47 Total Protein 7.7 g/dL (6.6-8.7) 06/23/24 17:47 Albumin 4.6 g/dL (3.5-5.2) 06/23/24 17:47 Globulin 3.1 g/dL (1.3-4.6) 06/23/24 17:47 Lipase 18 U/L (13-60) 06/23/24 17:47 HCG, Qual Negative (Negative) 06/23/24 17:47 Urine Color Yellow (Yellow) 06/23/24 19:00 Urine Appearance Slightly cloudy (CLEAR) 06/23/24 19:00 Urine pH 5 (5-7) 06/23/24 19:00 Ur Specific [place] 1.015 (1.005-1.030) 06/23/24 19:00 Urine Protein Neg (Negative) 06/23/24 19:00 Urine Glucose (UA) Norm (Normal) 06/23/24 19:00 Urine Ketones Negative (Negative) 06/23/24 19:00 Urine Blood 2+ (Negative) H 06/23/24 19:00 Urine Nitrate Negative (Negative) 06/23/24 19:00 Urine Bilirubin Neg (Negative) 06/23/24 19:00 Urine Urobilinogen Norm mg/dL (Negative) 06/23/24 19:00 Ur Leukocyte Esterase 2+ (Negative) H 06/23/24 19:00 Urine RBC 0-4 /hpf (0-2) H 06/23/24 19:00 Urine WBC 15-25 /hpf (0-5) H 06/23/24 19:00 Ur Squamous Epith Cells 15-25 /hpf (0-5) H 06/23/24 19:00 Amorphous Sediment Not Reportable 06/23/24 19:00 Urine Bacteria 2+ /hpf (NONE) H 06/23/24 19:00 All radiology interpretation(s) finalized by discharge Discharge Plan Discharge Patient Disposition: Home Clinical Impression: Urinary tract infection Condition: Stable Prescriptions: New cefdinir 300 mg capsule 300 mg PO BID 10 Days Qty: 20 0RF No Action albuterol sulfate [Ventolin HFA] 90 mcg/actuation HFA aerosol inhaler 2 inh inhalation QID PRN (Reason: shortness of breath or wheezing) Qty: 8.5 3RF (DME) blood-glucose meter Misc See Rx Instructions .Route Qty: 1 0RF Rx Instructions: As directed (DME) Blood Glucose Test Strip See Rx Instructions .Route Qty: 50 5RF Rx Instructions: As directed (DME) lancing device [Auto-Lancet Mini] Misc See Rx Instructions .Route Qty: 100 0RF Rx Instructions: daily nystatin-triamcinolone 100,000-0.1 unit/g-% cream 1 applic topical BID Qty: 60 6RF medroxyprogesterone [Depo-Provera] 150 mg/mL suspension 150 mg IM .[id number] Qty: 1 4RF clobetasol 0.05 % cream 1 applic topical BID 14 Days Qty: 45 2RF Discharge Orders: Discharge ED (Routine); Ordered 06/23/24 Ordered By: Kane Short Referrals: Tommy Han, RECONCILIATION MANAGER [Primary Care Provider] - Discharge Diet: Usual diet Discharge Activity: Increase activity as tolerated Patient Instructions: Urinary Tract Infection in Women (ED) Activity Restrictions/Additional Instructions: Take antibiotics as prescribed. Plenty of fluids. Tylenol and ibuprofen for any pain. Follow-up with your primary care provider as needed. Return with any new or worsening. Coding Level of Care Code ED Tube Machine Operator Helper for Corinna Elkins
[2024-06-23 19:51] LABS: Urine Appearance Slightly Cloudy (CLEAR); Urine Color Yellow (Yellow); pH Urine 5 (5-7)
[2024-06-23 19:52] LABS: Add Urine Microscopic? YES; Bacteria Urine 2+ /hpf; Bilirubin Urine Neg (Negative); Blood Urine 2+ (Negative); Glucose Urine UA Norm (Normal); Ketones Urine Negative (Negative); Leukocyte Esterase Urine 2+ (Negative); Nitrate Urine Negative (Negative); Protein Urine Neg (Negative); RBC Urine 0-4 /hpf (0-2); Specific Gravity, Urine 1.015 (1.005-1.030); Squamous Epithelial Cell Urine 15-25 /hpf (0-5); Urobilinogen Urine Norm (Negative); WBC Urine 15-25 /hpf (0-5)
[2024-06-23 19:53] LABS: Add Urine Culture? No
[2024-06-23] MEDS: iohexol 350 mg/mL 500 mL Btl (per mL) IV (20:24)
[2024-06-23] MEDS: cefdinir 300 MG CAPSULE PO (21:02)
== END 2024-06-23 21:09 | disposition home or self-care (01) ==
PROVIDERS: Emergency Medicine; Emergency Provider Physician Assistant; PCP Nurse Practitioner Family
DX: N39.0 Urinary tract infection, site not specified (principal)
CPT/HCPCS: 36415; 74177; 80053; 81001; 83690; 84703; 85025; 99285; Q9967

== ENCOUNTER → 2025-01-28 10:59 | Outpatient (BNVA) | payer SELFPAY | PROVIDERS: PCP Nurse Practitioner Family; Visit Provider Emergency Medicine | DX: R50.9 Fever, unspecified (principal) | CPT/HCPCS: 81000 ==

== ENCOUNTER → 2025-09-06 09:48 | Outpatient (BNVA) | payer SELFPAY | PROVIDERS: PCP Nurse Practitioner Family; Visit Provider Nurse Practitioner | DX: J02.9 Acute pharyngitis, unspecified (principal) | CPT/HCPCS: 87880 ==